=== PATIENT | male | born 1960 | race Caucasian/White ===

== ENCOUNTER 2019-03-31 14:32 | Emergency (ER) | payer BC, OTHER ==
[~2019-03-31] VITALS: Ht 177.8 cm; Wt 95.2 kg
[~2019-03-31 14:32] MED LIST: Ambien10 MG PO; CYCL10 PO; GABA300 PO; HYDACE10B PO; HYDACE5 PO; MELO7.5 PO; METPRE4DP PO; NAPR500 PO; OXYACE5T PO; Valium5 MG PO; ZESTORETIC 20-121 EA
[2019-03-31 15:55] LABS: BASOPHILS ABSOLUTE AUTO 0.05 K/mm3 (0.00-0.23); BASOPHILS PERCENT AUTO 0 % (0-2); EOSINOPHILS ABSOLUTE AUTO 0.05 K/mm3 (0.00-0.68); EOSINOPHILS PERCENT AUTO 0 % (0-6); Hematocrit 43.7 % (37.0-53.0); Hemoglobin 14.8 g/dL (13.5-17.5); IMMATURE GRAN ABSOLUTE AUTO 0.09 K/mm3 (0.00-0.10); IMMATURE GRAN PERCENT AUTO 0 % (0-1); LYMPHOCYTES ABSOLUTE AUTO 1.98 K/mm3 (0.84-5.20); LYMPHOCYTES PERCENT AUTO 9 % (21-46); MONOCYTES ABSOLUTE AUTO 1.46 K/mm3 (0.16-1.47); MONOCYTES PERCENT AUTO 7 % (4-13); Mean Corpuscular HGB 31.5 pg (26.0-34.0); Mean Corpuscular HGB Conc 33.9 g/dL (31.5-36.5); Mean Corpuscular Volume 93 fL (80-100); Mean Platelet Volume 9.7 fL (9.1-12.4); NEUTROPHILS ABSOLUTE AUTO 18.98 K/mm3 (1.96-9.15); NEUTROPHILS PERCENT AUTO 84 % (41-73); Platelet Count 336 K/mm3 (150-400); RDW Coefficient Variation 12.6 % (11.7-14.2); RDW Standard Deviation 43.3 fL (35.1-46.3); White Blood Cell Count 22.61 K/mm3 (4.00-11.30)
[2019-03-31 16:15] LABS: Alanine Aminotransfer (ALT/SGP 57 U/L (12-78); Albumin, Blood 4.6 g/dL (3.4-5.0); Albumin/Globulin Ratio 1.2 (0.8-1.8); Alk Phos 78 U/L (50-136); Anion Gap 10 mmol/L (6-16); Aspartate Aminotrans (AST/SGOT 74 U/L (12-37); Bilirubin, Total 1.9 mg/dL (0.1-1.0); Blood Urea Nitrogen 35 mg/dL (8-24); Bun/Creatinine Ratio 30.2 (12.0-20.0); CO2, Blood 25 mmol/L (21-32); Calcium, Blood 9.5 mg/dL (8.5-10.1); Chloride, Blood 101 mmol/L (98-108); Creatinine, Blood 1.16 mg/dL (0.60-1.20); Globulin, Blood 3.9 g/dL (2.2-4.0); Glomerular Filtration Rate >60 (60-); Glucose, Blood 160 mg/dL (70-99); Potassium, Blood 3.4 mmol/L (3.5-5.5); Sodium, Blood 136 mmol/L (136-145); Total Protein, Blood 8.5 g/dL (6.4-8.2)
[2019-03-31] MEDS ORDERED: CEPH500 PO (18:18)
[2019-03-31] MEDS ORDERED: IVERMECTIN3 MG PO (18:18)
== END 2019-03-31 18:34 | disposition home or self-care (01) ==
LOC: ER 14:32
PROVIDERS: Physician Assistant
DX: L73.9 Follicular disorder, unspecified (principal); I10 Essential (primary) hypertension; F17.220 Nicotine dependence, chewing tobacco, uncomplicated; Z79.899 Other long term (current) drug therapy
CPT/HCPCS: 80053; 85025; 99283

== ENCOUNTER 2024-02-11 07:21 | Emergency (ER) | payer MEDICARE, OTHER ==
[~2024-02-11] VITALS: Ht 175.3 cm; Wt 86.2 kg
[~2024-02-11 07:21] MED LIST changes: +CEPH500 PO; +IVERMECTIN3 MG PO
[2024-02-11] MEDS ORDERED: HYDROmorphone HCl/Pf 1MG SYR IV ONE (08:50)
[2024-02-11] MEDS ORDERED: LORazepam 2 MG/ML 1ML Injection IV ONE ×2 (09:10→09:40)
[2024-02-11 10:30] VITALS: BP 148/109
== END 2024-02-11 10:57 | disposition home or self-care (01) ==
LOC: ER 07:21
DX: S30.842A External constriction of penis, initial encounter (principal); W49.09XA Other specified item causing external constriction, initial encounter; I10 Essential (primary) hypertension; F17.220 Nicotine dependence, chewing tobacco, uncomplicated; Z79.899 Other long term (current) drug therapy
CPT/HCPCS: 64450; 96374-59; 96375-59; 99283-25; J1170; J1171; J2060

== ENCOUNTER 2024-02-21 09:24 | Emergency (ER) | payer OTHER ==
[~2024-02-21] VITALS: Ht 172.7 cm; Wt 81.7 kg
[2024-02-21 10:23] VITALS: BP 139/88
[2024-02-21] MEDS ORDERED: GABA300 PO (10:31)
[2024-02-21] MEDS ORDERED: LATA.005SO (10:31)
[2024-02-21] MEDS ORDERED: Prinivil10 MG PO (10:31)
[2024-02-21] MEDS ORDERED: JARDIANCE10 MG PO (10:31)
[2024-02-21] MEDS ORDERED: Crestor40 MG PO (10:32)
[2024-02-21] MEDS ORDERED: BUPRENORPHINE HC2 MG (10:32)
[2024-02-21] MEDS ORDERED: METF500 PO (10:33)
[2024-02-21] MEDS ORDERED: TAMS.4ER PO (10:34)
[2024-02-21] MEDS ORDERED: SITA100T2 PO (10:34)
[2024-02-21] MEDS ORDERED: QUET200 PO ×2 (10:34)
[2024-02-21] MEDS ORDERED: HYDHCL25 (10:35)
[2024-02-21] MEDS ORDERED: CEPH500 PO (10:59)
[2024-02-21] MEDS ORDERED: PRED20 PO (10:59)
== END 2024-02-21 11:06 | disposition home or self-care (01) ==
LOC: ER 09:24
DX: N48.22 Cellulitis of corpus cavernosum and penis (principal); S31.21XA Laceration without foreign body of penis, initial encounter; M16.11 Unilateral primary osteoarthritis, right hip; M19.012 Primary osteoarthritis, left shoulder; M19.011 Primary osteoarthritis, right shoulder; I10 Essential (primary) hypertension; E11.9 Type 2 diabetes mellitus without complications; Z79.84 Long term (current) use of oral hypoglycemic drugs; Z79.899 Other long term (current) drug therapy; X58.XXXA Exposure to other specified factors, initial encounter
CPT/HCPCS: 99283

== ENCOUNTER 2024-05-21 08:41 | Emergency (ER) | payer SELFPAY ==
[~2024-05-21] VITALS: Ht 175.3 cm; Wt 86.2 kg
[~2024-05-21 08:41] MED LIST changes: +BUPRENORPHINE HC2 MG; +Crestor40 MG PO; +HYDHCL25; +JARDIANCE10 MG PO; +LATA.005SO; +METF500 PO; +PRED20 PO; +Prinivil10 MG PO; +QUET200 PO; +SITA100T2 PO; +TAMS.4ER PO
[2024-05-21 09:18] VITALS: BP 186/101
== END 2024-05-21 09:33 | disposition home or self-care (01) ==
LOC: ER 08:41
DX: F22 Delusional disorders (principal); F17.200 Nicotine dependence, unspecified, uncomplicated; Z79.84 Long term (current) use of oral hypoglycemic drugs; Z79.52 Long term (current) use of systemic steroids; Z79.899 Other long term (current) drug therapy
CPT/HCPCS: 99284

== ENCOUNTER → 2024-05-23 | Outpatient (CLI) | payer MEDICARE, OTHER ==
[2024-06-01 20:10] LABS: OVA AND PARASITE,FECAL INTERP Negative (Negative)
== END | disposition home or self-care (01) ==
LOC: LAB 15:09 → LAB SHORT 15:09
PROVIDERS: Family Medicine
DX: R19.5 Other fecal abnormalities (principal)
CPT/HCPCS: 87177; 87209